=== PATIENT | female | born 1950 | race Caucasian/White ===

== ENCOUNTER → 2016-11-11 | Outpatient (CLI) | payer BC ==
[~2016-11-11] MED LIST: CHOL1CAP PO; CHOL1TAB42 PO; ESTR0.3T PO; SELENIUM PO; SIMV20TA2 PO; VITA400C28 PO
[2016-11-11 13:38] LABS: BASO % 0.5 %; BASO ABS # 0.02 K/uL (0-0.2); COMPLETE YES; EOS % 8.8 %; HEMATOCRIT 44.4 % (37-47); LYMPH % 34.6 %; LYMPH ABS # 1.42 K/uL (1.2-3.4); MEAN CELL VOLUME 93.9 fL (80-100); MEAN CORPUSCULAR HEMOGLOBIN 31.5 pg (25-34); MEAN CORPUSCULAR HGB CONC 33.6 g/dl (32-36); MEAN PLATELET VOLUME 10.6 fL (7.4-10.4); MONO % 7.6 %; NEUT % 48.5 %; PLATELET COUNT 263 K/uL (130-400); RED BLOOD COUNT 4.73 M/uL (4.2-5.4)
[2016-11-11 14:17] LABS: ALT/SGPT 22 U/L (12-78); AST/SGOT 18 U/L (15-37); BLOOD UREA NITROGEN 12 mg/dl (7-18); BUN/CREATININE RATIO 15.5 (10-20); CALCIUM 9.4 mg/dl (8.5-10.1); CARBON DIOXIDE 31 mmol/L (21-32); CHLORIDE 106 mmol/L (98-107); CHOLESTEROL 251 mg/dl (0-200); CREATININE 0.76 mg/dl (0.60-1.20); GLUCOSE 90 mg/dl (70-99); POTASSIUM 4.1 mmol/L (3.5-5.1); SODIUM 142 mmol/L (136-145); TRIGLYCERIDES 162 mg/dl (0-150); VERY LOW DENSITY LIPOPROT CALC 32 mg/dl
[2016-11-11 14:29] LABS: ALB/GLOB RATIO 1.2 (0.9-2); ALKALINE PHOSPHATASE 60 U/L (45-117); CHOLESTEROL/HDL RATIO 3.7; HDL CHOLESTEROL 68 mg/dl; LDL CHOLESTEROL CALCULATED 151 mg/dl
== END | disposition home or self-care (01) ==
LOC: C.LABBC 10:10
PROVIDERS: ATTEND Physician Assistant Medical
DX: Z13.0 Encounter for screening for diseases of the blood and blood-forming organs and certain disorders involving the immune mechanism (principal); E78.5 Hyperlipidemia, unspecified; N20.0 Calculus of kidney

== ENCOUNTER → 2017-03-15 | Outpatient (CLI) | payer BC | END | disposition home or self-care (01) | LOC: C.LAB 10:24 | PROVIDERS: ATTEND Physician Assistant Medical | DX: E78.5 Hyperlipidemia, unspecified (principal) ==

== ENCOUNTER 2023-07-07 06:08 | Inpatient (IN) ==
--- NOTE | 2023-06-19 13:38 | PAT Medication Instructions ---
Medication Instructions Date of Service June 19, 2023 Home Medications Medication Instructions Recorded simvastatin 40 mg tablet 40 mg PO QPM #90 tabs 03/13/23 Medication List: cholecalciferol (vitamin D3) 125 mcg (5,000 unit) capsule 5,000 units PO QPM glucosamine-chondroitin 250 mg-200 mg tablet (Osteo Bi-Flex) 1 tab PO QPM selenium 200 mcg capsule 200 mcg PO QPM vitamin E mixed 400 unit capsule 400 units PO QPM mesalamine 1.2 gram tablet,delayed release (Lialda) 2.4 g PO QAM simvastatin 40 mg tablet 40 mg PO QPM ezetimibe 10 mg tablet (Zetia) 10 mg PO QPM ibuprofen 600 mg tablet 600 mg PO UD PRN pain polyethylene glycol 3350 17 gram oral powder packet (Miralax) 17 g PO Q2D vit C 250 mg-vit E 90 mg-zinc 40 mg-copper 1 cu-jyntgs-vyqtzw capsule (PreserVision AREDS-2) 1 tab PO BID MEDICATION INSTRUCTIONS: ASK your surgeon for instructions ibuprofen 600 mg tablet 600 mg PO UD PRN pain ASK your prescriber and surgeon mesalamine 1.2 gram tablet,delayed release (Lialda) 2.4 g PO QAM STOP taking 2 weeks before surgery vit C 250 mg-vit E 90 mg-zinc 40 mg-copper 1 [id number]-ptzwie-qgmzfq capsule (PreserVision AREDS-2) 1 tab PO BID glucosamine-chondroitin 250 mg-200 mg tablet (Osteo Bi-Flex) 1 tab PO QPM selenium 200 mcg capsule 200 mcg PO QPM vitamin E mixed 400 unit capsule 400 units PO QPM DO NOT take the morning of surgery polyethylene glycol 3350 17 gram oral powder packet (Miralax) 17 g PO Q2D Take evening before surgery simvastatin 40 mg tablet 40 mg PO QPM cholecalciferol (vitamin D3) 125 mcg (5,000 unit) capsule 5,000 units PO QPM ezetimibe 10 mg tablet (Zetia) 10 mg PO QPM Other Notes Remember: NOTHING TO EAT OR DRINK AFTER MIDNIGHT If you have any questions please call us at [phone] or [phone] or [phone] or [phone]
--- NOTE | 2023-06-22 10:27 | Anesthesiology Consultation ---
Date of Service June 22, 2023 Assessment & Plan (1) Encounter for pre-operative examination: - PCP pre-operative evaluation 06/20/23 MN: "...Patient is here at the request of her surgeon. Using the revised cardiac index, she is at low risk for adverse outcomes with non-cardiac surgery. Recent labs reviewed. She does have PAT scheduled on 06/22/23 - will hold off on EKG and CXR today as she was told they will do the testing there. She is acceptable risk for surgery..." Chart Review Chart Review: Acceptable Risk for Surgery and Patient seen in Pre Admission Testing Teaching & Discussion Pre-Anesthesia Teaching/Discussion Notes: Instructed NPO after midnight before surgery, except medications with 15 cc of water. Medication instructions provided according to the PAT guidelines. History Surgery Operation Date: 07/07/23 13:00 Proposed Procedures p L4-L5 Decompression and Fusion, Spinal Cord Monitoring - Sheldon Riley DO Height/Weight Height: 5 ft 3 in Weight: 78.5 kg Allergies Allergy/AdvReac Type Severity Reaction Status Date / Time atorvastatin Allergy Unknown ITCHING, Verified 06/20/23 09:18 RASH Bactrim Allergy Unknown HIVES Verified 07/16/15 15:07 levofloxacin Allergy Unknown HIVES Verified 06/20/23 09:18 sulfamethoxazole Allergy Unknown HIVES Verified 06/20/23 09:18 trimethoprim Allergy Unknown HIVES Verified 06/20/23 09:18 Medications Home Medications Medication Instructions Recorded Confirmed Last Taken cholecalciferol (vitamin D3) 125 5,000 units PO QPM 04/17/19 06/20/23 Unknown mcg (5,000 unit) capsule glucosamine-chondroitin 250 mg-200 1 tab PO QPM 04/17/19 06/20/23 Unknown mg tablet (Osteo Bi-Flex) selenium 200 mcg capsule 200 mcg PO QPM 04/17/19 06/20/23 Unknown vitamin E mixed 400 unit capsule 400 units PO QPM 04/17/19 06/20/23 Unknown mesalamine 1.2 gram tablet,delayed 2.4 g PO QAM 08/24/20 06/20/23 Unknown release (Lialda) simvastatin 40 mg tablet 40 mg PO QPM #90 tabs 03/13/23 06/20/23 Unknown ezetimibe 10 mg tablet (Zetia) 10 mg PO QPM 06/16/23 06/20/23 Unknown ibuprofen 600 mg tablet 600 mg PO UD PRN pain 06/16/23 06/20/23 Unknown polyethylene glycol 3350 17 gram 17 g PO Q2D 06/16/23 06/20/23 Unknown oral powder packet (Miralax) vit C 250 mg-vit E 90 mg-zinc 40 1 tab PO BID 06/16/23 06/20/23 Unknown mg-copper 1 oj-bevbqg-lauqsr capsule (PreserVision AREDS-2) Past Medical History Medical History (Updated 06/22/23 @ 10:42 by Nan Allen PA-C) Erythema migrans (Lyme disease) dx x2, most recent August 2022. History of colon polyps History of gallstones History of high cholesterol History of kidney stones (~1989) Hx of gastric ulcer (~1989) Proctitis chronic Spondylolisthesis and cyst L4-5. Patient denies h/o stroke, seizures, heart attack, heart failure, DM, HTN, blood clots/DVTs or blood transfusions. Exercise / Class Metabolic Activity II 4-5 Yardwork/Stairs/Walk up hill (denies chest discomfort or shortness of breath with one flight of stairs) Past Family History Family History Father Esophagus cancer Sister Diabetes Cardiac disorder Ovarian cancer Stroke Mother Cardiac disorder Myocardial infarction Diabetes Hypertension Aunt Breast cancer MATERNAL AND PATERNAL Denies family history of Prostate cancer Lung cancer Colorectal cancer Past Surgical History Surgical History (Updated 06/22/23 @ 10:42 by Nan Allen PA-C) H/O colonoscopy February 2020, repeat 5 years History of arthroscopy of knee WITH MEDIAL MENISCUS REPAIR History of arthroscopy of left knee History of arthroscopy of right knee History of endoscopy ? in remote hx. History of hysterectomy with bilateral oophorectomy History of lithotripsy History of trigger finger right thumb Past Anesthesia History No Hx of Anesthesia Complications and No Family Hx of Anesthesia Complications History of PONV No Hx of PONV and No Hx of Motion Sickness Social History Smoking Status: Former smoker Do You Dip or Chew Tobacco: No Smoking End Date: 2008 Hx Alcohol Use: No Hx Substance Use: No substance use type: does not use Review of Systems Patient denies chest pain, shortness of breath, dyspnea on exertion, snoring, witnessed apneas, fever, chills, cough, wheezing, or palpitations. Physical Exam Vital Signs Vitals BP 126/78 P 60 TEMP 97.9 SP02 97% on RA RESP 18 Physical Patient resting comfortably in chair in no acute distress, alert and oriented, responding appropriately throughout visit Full cervical extension range of motion without pain TMD 3.5 finger breadths Mallampati Score 2 Dentition: edentulous, full upper and lower dentures Lungs: normal respiratory effort. Good air movement, clear throughout to auscultation, no adventitious breath sounds Cardiac: regular rate and rhythm, no murmurs noted Carotid arteries: negative bruit bilat Lab Results Anesthesia Preop Results Results Anesthesia Widget: WBC 4.86 K/ul (4.8-10.8) 05/24/23 Hgb 14.6 g/dl (12.0-16.0) 05/24/23 Hct 45.4 % (37.0-47.0) 05/24/23 Plt 252 K/uL (130-400) 05/24/23 Na 139 mmol/L (136-145) 05/24/23 K 4.2 mmol/L (3.5-5.1) 05/24/23 Cl 105 mmol/L (98-107) 05/24/23 CO2 29 mmol/L (21-32) 05/24/23 BUN 13 mg/dl (6-23) 05/24/23 Creat 0.80 mg/dl (0.6-1.2) 05/24/23 Glucose Level 100 mg/dl (70-99(Fasting)) H 05/24/23 PT 10.3 Seconds (9.0-12.0) 06/22/23 PTT 25 Seconds (21-31) 06/22/23 INR 0.9 (0.9-1.1) 06/22/23 Urine Color Yellow 06/22/23 Urine Appearance Clear (Clear) 06/22/23 Urine pH 5.5 (4.5-7.5) 06/22/23 Urine Specific Cab[place] 1.016 (1.000-1.030) 06/22/23 Urine Protein Negative (Negative) 06/22/23 Urine Glucose (UA) Negative (Negative) 06/22/23 Urine Ketones Negative (Negative) 06/22/23 Urine Blood Negative (Negative) 06/22/23 Urine Nitrite Negative (Negative) 06/22/23 Urine Bilirubin Negative (Negative) 06/22/23 Urine Urobilinogen Negative (Negative) 06/22/23 Urine Leukocyte Esterase 1+ (Negative) H 06/22/23 Urine WBC (Auto) 0-5 /hpf (0-5) 06/22/23 Urine RBC (Auto) 0-2 /hpf (0-2) 06/22/23 Urine Hyaline Casts (Auto) 0-2 /lpf (0-2) 06/22/23 Urine Epithelial Cells (Auto) 0-2 /hpf (0-2) 06/22/23 Urine Bacteria (Auto) None Seen (None Seen) 06/22/23 Blood Type A Positive 06/22/23 Antibody Screen NEGATIVE 06/22/23 Testing Electrocardiogram Date: 06/22/23 Sinus bradycardia, rate 59 bpm Chest X-Ray Date: 06/22/23 No acute process.
[2023-07-07] MEDS: GABAPENTIN 300 MG CAP PO SCH (06:37)
[2023-07-07] MEDS: LR 15ML/HR IV SCH (06:37)
[2023-07-07] MEDS: ACETAMINOPHEN 500 MG TAB PO SCH (06:37)
[2023-07-07] MEDS: LR 60ML/HR IV SCH (06:38)
[2023-07-07] MEDS ORDERED: ePHEDrine sulfate 50 MG/ML AMP IV PRN (06:59)
[2023-07-07] MEDS ORDERED: ONDANSETRON INJ 2 MG/ML 2 ML VIAL IV PRN ×2 (06:59→11:59)
[2023-07-07] MEDS ORDERED: HYDROmorphone INJ 1 MG/ML SYRINGE IV PRN (06:59)
[2023-07-07] MEDS ORDERED: ATROPINE SULFATE 0.1 MG/ML 10ML SYR IV PRN (06:59)
[2023-07-07] MEDS ORDERED: fentaNYL citrate PF 100 MCG/2 ML VIAL IV PRN (06:59)
[2023-07-07] MEDS ORDERED: fentaNYL citrate PF 100 MCG/2 ML VIAL ONE (07:21)
[2023-07-07] MEDS ORDERED: MIDAZOLAM HCL 1 MG/ML 2ML VIAL ONE (07:21)
[2023-07-07] MEDS ORDERED: SUGAMMADEX SODIUM 200 MG/2 ML VIAL IV ONE (07:24)
[2023-07-07] MEDS ORDERED: PROPOFOL IV EMULSION 10 MG/ML 20 ML VIAL IV ONE (07:24)
[2023-07-07] MEDS ORDERED: ROCURONIUM BROMIDE 10 MG/ML 5 ML VIAL IV ONE (07:24)
[2023-07-07] MEDS ORDERED: LIDOCAINE 2% 2 ML VIAL/AMP(20MG/ML) INFIL ONE (07:24)
--- NOTE | 2023-07-07 07:46 | History & Physical Bridge Note ---
Date of Service July 07, 2023 History & Physical Bridge Note I have examined the patient, reviewed the History & Physical and in the interval since the performance of the History & Physical I have noted the following changes of clinical significance: no changes noted
--- NOTE | 2023-07-07 07:47 | History & Physical Report ---
Date of Service July 07, 2023 Assessment & Plan (1) Neurogenic claudication due to lumbar spinal stenosis: Plan: L4-L5 decompression and fusion History of Present Illness Chief Complaint: Back and leg pain Primary Care Provider: Orlando Bach DO This is a 73-year-old female presents for chronic persistent back and leg pain after failing course of nonoperative care is here for surgical invention. Allergies Allergy/AdvReac Type Severity Reaction Status Date / Time atorvastatin Allergy Unknown ITCHING, Verified 07/07/23 06:29 RASH Bactrim Allergy Unknown HIVES Verified 07/16/15 15:07 levofloxacin Allergy Unknown HIVES Verified 07/07/23 06:29 sulfamethoxazole Allergy Unknown HIVES Verified 07/07/23 06:29 trimethoprim Allergy Unknown HIVES Verified 07/07/23 06:29 Home Medications Medication Instructions Recorded Confirmed Type cholecalciferol (vitamin D3) 125 5,000 units PO QPM 04/17/19 07/07/23 History mcg (5,000 unit) capsule glucosamine-chondroitin 250 mg-200 1 tab PO QPM 04/17/19 07/07/23 History mg tablet (Osteo Bi-Flex) selenium 200 mcg capsule 200 mcg PO QPM 04/17/19 07/07/23 History vitamin E mixed 400 unit capsule 400 units PO QPM 04/17/19 07/07/23 History mesalamine 1.2 gram tablet,delayed 2.4 g PO QAM 08/24/20 07/07/23 History release (Lialda) simvastatin 40 mg tablet 40 mg PO QPM #90 tabs 03/13/23 07/07/23 Rx ezetimibe 10 mg tablet (Zetia) 10 mg PO QPM 06/16/23 07/07/23 History ibuprofen 600 mg tablet 600 mg PO UD PRN pain 06/16/23 07/07/23 History polyethylene glycol 3350 17 gram 17 g PO Q2D 06/16/23 07/07/23 History oral powder packet (Miralax) vit C 250 mg-vit E 90 mg-zinc 40 1 tab PO BID 06/16/23 07/07/23 History mg-copper 1 uu-jgguoy-hoentn capsule (PreserVision AREDS-2) Past Med/Surg History Problem List (Updated 07/07/23 @ 07:47 by Sheldon Riley DO) Neurogenic claudication due to lumbar spinal stenosis Insect bite Breast cancer screening Hormone replacement therapy (HRT) (Acute) Medical History (Updated 07/07/23 @ 07:47 by Sheldon Riley DO) Spondylolisthesis and cyst L4-5. Hx of gastric ulcer (~1989) History of colon polyps History of high cholesterol History of kidney stones (~1989) History of gallstones Erythema migrans (Lyme disease) dx x2, most recent August 2022. Proctitis chronic Surgical History History of arthroscopy of knee WITH MEDIAL MENISCUS REPAIR History of arthroscopy of left knee History of arthroscopy of right knee History of endoscopy ? in remote hx. History of trigger finger right thumb History of lithotripsy H/O colonoscopy February 2020, repeat 5 years History of hysterectomy with bilateral oophorectomy Family History Father Esophagus cancer Sister Diabetes Cardiac disorder Ovarian cancer Stroke Mother Cardiac disorder Myocardial infarction Diabetes Hypertension Aunt Breast cancer MATERNAL AND PATERNAL Denies family history of Prostate cancer Lung cancer Colorectal cancer Social History Smoking Status: Former smoker Tobacco Type: Cigarettes Age Started Using Tobacco: 20; Age Quit Using Tobacco: 42; Smoking End Date: 2008; Second Hand Exposure: No; Do You Dip or Chew Tobacco: No; Hx Alcohol Use: No Hx Substance Use: No Preferred Language: Uzbek Communication Ability: Effective Visual Impairment: Limited Hearing Ability: Normal Field Secretary Required: No Beliefs That Will Affect Care: None marital status: Current Living Situation: Spouse and Family Current Living Situation Comment: and son current occupational status: retired How many Children do You have: 2 Other Information That Helps Us Care for You: Yes (3 steps to get in house and 12 steps in house.) Feels Safe at Home: Yes Childhood Exposure to Second-Hand Smoke: No Diet: regular caffeine: Yes Dental Care, Regularly: No Physical Activity Frequency: Daily Physical Activity Frequency Comment: 4 miles daily Seatbelt Use: always Sunscreen Use: Yes Assistive Devices: Denture - Upper, Denture - Lower and Glasses Physical Exam Physical Exam: Patient is alert and oriented Heart regular rhythm Lungs clear Results & Data Results & Data Vital Signs (Past 12 Hours) Vital Signs Temp Pulse Resp BP Pulse Ox O2 Del Method 07/07/23 06:55 36.5 C 63 20 119/70 96 Room Air
[2023-07-07] MEDS: ceFAZolin 2000MG 2,000 MG/15 ML SYR IV SCH ×2 (08:10→16:56)
[2023-07-07] MEDS ORDERED: ePHEDrine sulfate 50 MG/5 ML SYR ONE (08:19)
[2023-07-07] MEDS ORDERED: DEXAMETHASONE SOD INJ 4 MG/ML VIAL ONE (08:34)
[2023-07-07] MEDS ORDERED: HYDROmorphone INJ 2 MG/ML SYR/VIAL ONE (08:34)
[2023-07-07] MEDS ORDERED: ONDANSETRON INJ 2 MG/ML 2 ML VIAL ONE (08:37)
[2023-07-07] MEDS: BUPIVACAINE/EPINEPHRINE 0.25% 1:200,000 30 ML VIAL ONE (08:42)
[2023-07-07] MEDS: ceFAZolin 330 MG/ML 1 GM VIAL ONE (09:31)
[2023-07-07] MEDS: FLOSEAL HEMOSTATIC MATRIX 10ML TOP ONE (09:32)
--- NOTE | 2023-07-07 09:38 | Operative Report ---
Post Operative Report Pre & Post Diagnosis Operation Date: 07/07/23 07:45 Pre-Op Diagnosis: Spondylolisthesis, Lumbar Region Lumbar spinal stenosis with neurogenic claudication Post-Op Diagnosis: Same I identified the patient and participated in the time-out.: Yes Procedure Operation Date: 07/07/23 07:45 Actual Procedures #1 lumbar decompression with bilateral medial facetectomies and foraminotomies L3-L4 L4-5. #2 posterior spinal fusion L4-L5 per #3 placed posterior instrumentation L4-5. #4 interbody fusion L4-L5 #5 placement of Spira 13 x 26 mm cage x 2 at L4-L5. #6 placement locally harvested morselized autograft in the posterior gutters. #7 placement of infuse collagen sponge, with Koros bone graft in the posterior lateral gutters and Morpheus bone graft interbody space. Surgeon Sheldon Riley DO Change Number Operator Moshe Gross Estimated Blood Loss 100 Findings Consistent with Post-Op Diagnosis Specimens None Indications This is a 73-year-old female presents problems diagnosis) course of nonoperative care is here for surgical invention. Description of Procedure Patient met with identified informed consent obtained. Patient was then taken to the operative suite underwent patient placed in prone position on the Tab table on top of the Adelfo frame. The bony prominences well-padded eyes inspected to ensure no external pressure placed upon the. This point lumbar spine was prepped and draped in a sterile fashion. Sharp dissection with the assistance of Bovie cautery from down to and exposing the lamina and transverse processes of L 4 and L5 bilaterally. From a caudal cephalad fashion a complete laminectomy of L4 was performed including bilateral medial facetectomies and foraminotomies addressing severe lateral recess and foraminal stenosis. Then performed a partial laminectomy of L3 including bilateral medial facetectomies addressing all lateral recess stenosis. Pedicle screws were then placed in L4- L5 bilaterally with assistance of fluoroscopy and properly sized darius placed. By way of transforaminal approach on the right at discectomy of L for L5 was performed endplates guided to subcortical and bone and a 13 x 26 mm spiral cage filled with Morpheus bone graft tapped in position. Then proceeded the left side of the L4-5 transforaminal space. Completed the discectomy endplates guided to subcortical bleeding bone and a second 13 x 26 mm spiral cage filled with Morpheus bone graft tapped in position. The rods were then compressed locked into final position bilaterally. The transverse processes of L4-L5 burred to subcortical bleeding bone. Infuse collagen sponge master graft local autograft was placed in the posterior gutters. 15 round DONTE drain inserted. The incision was then closed with 1 Vicryl in the fascia 2-0 Vicryl subcutaneously and 4 Monocryl for final skin closure. Steri-Strips sterile dressings placed. Patient waken taken PACU stable condition. Please note spinal cord monitoring was utilized at the procedure no changes noted. Lastly Moshe Gross was present at the entire procedure and all the patient positioning complex portion of the surgery and final skin closure. I attest to the content of the Intraoperative Record and any orders documented therein. Any exceptions are noted below.
--- NOTE | 2023-07-07 10:06 | Fluoroscopy Report ---
FL lumbar spine 2-3V CLINICAL HISTORY: L4-L5 DECOMPRESSION AND FUSION TECHNIQUE: 2 views were obtained with the C-arm in the OR with the above procedure. Total fluoroscopy time was 15.9 seconds. Radiation dose was 14.46 mGy. Comparison: Comparison is made to MRI lumbar spine 05/26/2023 FINDINGS/IMPRESSION: Intraoperative images were obtained of L4-L5 decompression and fusion. Please correlate with intraoperative fluoroscopy and operative report. ACT 112: Negative or not required by law. Electronically signed by: Danielito Hollis M.D. 07/07/2023 10:04 AM
--- NOTE | 2023-07-07 10:51 | Anesthesiology Progress Note ---
Date of Service July 07, 2023 Anesthesia Post Procedure Vital Signs Vital Signs: Temp Pulse Pulse Resp BP Pulse Ox O2 Del Method 07/07/23 10:40 36.2 C L 58 L 16 117/66 95 Oxymask 07/07/23 10:30 57 L 16 119/67 95 Oxymask 07/07/23 10:20 62 13 128/71 94 Oxymask 07/07/23 10:10 62 13 118/64 97 Oxymask 07/07/23 10:02 36 C L 71 18 126/89 98 Oxymask 07/07/23 06:55 36.5 C 63 20 119/70 96 Room Air O2 Flow Rate 07/07/23 10:40 4 07/07/23 10:30 4 07/07/23 10:20 4 07/07/23 10:10 8 07/07/23 10:02 8 07/07/23 06:55 Transfer of Care Handoff Completed per policy Notes Mental Status: alert / awake / arousable and participated in evaluation Patient Amnestic to Procedure: Yes Nausea / Vomiting: adequately controlled Pain: adequately controlled Airway Patency, RR, SpO2: stable & adequate BP & HR: stable & adequate Hydration State: stable & adequate Anesthetic Complications: no major complications apparent and Pt Satisfied with anesthetic care
[2023-07-07] MEDS ORDERED: hydrOXYzine HCl 25 MG TAB PO PRN (11:59)
[2023-07-07] MEDS ORDERED: bisacodyL 10 MG SUPP PR PRN (11:59)
[2023-07-07] MEDS ORDERED: SOD PHOSPHATE/SOD BIPHOSPHATE ENEMA 132 ML BTL PR PRN (11:59)
[2023-07-07] MEDS ORDERED: DO NOT ADMINISTER PNEUMOCOCCAL VACCINE PRN (11:59)
[2023-07-07] MEDS ORDERED: LORazepam 0.5 MG TAB PO PRN (11:59)
[2023-07-07] MEDS ORDERED: ONDANSETRON 4 MG OD TAB PO PRN (11:59)
[2023-07-07] MEDS ORDERED: ACETAMINOPHEN 1,000 MG/100 ML VIAL IV PRN (11:59)
[2023-07-07] MEDS ORDERED: MAGNESIUM HYDROXIDE SUSP 30 ML UDC PO PRN (11:59)
[2023-07-07] MEDS ORDERED: NALOXONE HCL 0.4 MG/1 ML VIAL/CARP IV PRN (11:59)
[2023-07-07] MEDS ORDERED: FAMOTIDINE 20 MG TAB PO PRN (11:59)
[2023-07-07] MEDS ORDERED: LORazepam 0.5 MG in SYRINGE 0.25 ML IV PRN (11:59)
[2023-07-07] MEDS ORDERED: DO NOT ADMINISTER FLU VACCINE PRN (11:59)
[2023-07-07] MEDS ORDERED: ALUMINUM/MAGNESIUM SUSP 30 ML UDC PO PRN (11:59)
[2023-07-07] MEDS ORDERED: diphenhydrAMINE Capsule 25 MG CAP PO PRN (11:59)
[2023-07-07] MEDS ORDERED: METOCLOPRAMIDE HCL INJ 5 MG/ML 2 ML VIAL IV PRN (11:59)
[2023-07-07] MEDS ORDERED: PROMETHAZINE HCL 12.5 MG in SODIUM CHLORIDE 0.9% 50 ML IV PRN (11:59)
[2023-07-07] MEDS ORDERED: HYDROmorphone INJ 0.5 MG/0.5 ML SYR IV PRN (11:59)
[2023-07-07] MEDS: HYDROmorphone INJ 1 MG/ML SYRINGE IV PRN (12:42)
--- NOTE | 2023-07-07 13:06 | Hospitalist Consultation ---
Date of Consultation July 07, 2023 Assessment & Plan (1) Neurogenic claudication due to lumbar spinal stenosis: s/p lumbar spine decompression, PT/OT pain control laxatives DVT prophylaxis as per surgery (2) Hyperlipidemia: continue statins History of Present Illness Reason for Consultation: medical managment Attending Physician: Sheldon Riley DO History of Present Illness 73 yo female with h/o hyperlipidemia, lumbar spine stenosis, underwent lumbar spine decompression surgery today, tolerated surgery well, reports some minimal pain at surgical site, denies chest pain , SOB, no nausea, vomiting. Allergies Allergy/AdvReac Type Severity Reaction Status Date / Time atorvastatin Allergy Unknown ITCHING, Verified 07/07/23 06:29 RASH Bactrim Allergy Unknown HIVES Verified 07/16/15 15:07 levofloxacin Allergy Unknown HIVES Verified 07/07/23 06:29 sulfamethoxazole Allergy Unknown HIVES Verified 07/07/23 06:29 trimethoprim Allergy Unknown HIVES Verified 07/07/23 06:29 Home Medications Medication Instructions Recorded Confirmed Type cholecalciferol (vitamin D3) 125 5,000 units PO QPM 04/17/19 07/07/23 History mcg (5,000 unit) capsule glucosamine-chondroitin 250 mg-200 1 tab PO QPM 04/17/19 07/07/23 History mg tablet (Osteo Bi-Flex) selenium 200 mcg capsule 200 mcg PO QPM 04/17/19 07/07/23 History vitamin E mixed 400 unit capsule 400 units PO QPM 04/17/19 07/07/23 History mesalamine 1.2 gram tablet,delayed 2.4 g PO QAM 08/24/20 07/07/23 History release (Lialda) simvastatin 40 mg tablet 40 mg PO QPM #90 tabs 03/13/23 07/07/23 Rx ezetimibe 10 mg tablet (Zetia) 10 mg PO QPM 06/16/23 07/07/23 History ibuprofen 600 mg tablet 600 mg PO UD PRN pain 06/16/23 07/07/23 History polyethylene glycol 3350 17 gram 17 g PO Q2D 06/16/23 07/07/23 History oral powder packet (Miralax) vit C 250 mg-vit E 90 mg-zinc 40 1 tab PO BID 06/16/23 07/07/23 History mg-copper 1 kn-meatzc-awskrg capsule (PreserVision AREDS-2) oxycodone 5 mg tablet 5 mg PO Q6H PRN pain #30 tabs 07/07/23 Rx tramadol 50 mg tablet 50 mg PO Q6H PRN pain, moderate 07/07/23 Rx #30 tabs Patient History Medical History (Updated 07/07/23 @ 13:17 by Zoila Galvez MD) Spondylolisthesis and cyst L4-5. Hx of gastric ulcer (~1989) History of colon polyps History of high cholesterol History of kidney stones (~1989) History of gallstones Erythema migrans (Lyme disease) dx x2, most recent August 2022. Proctitis chronic Surgical History History of arthroscopy of knee WITH MEDIAL MENISCUS REPAIR History of arthroscopy of left knee History of arthroscopy of right knee History of endoscopy ? in remote hx. History of trigger finger right thumb History of lithotripsy H/O colonoscopy February 2020, repeat 5 years History of hysterectomy with bilateral oophorectomy Family History Father Esophagus cancer Sister Diabetes Cardiac disorder Ovarian cancer Stroke Mother Cardiac disorder Myocardial infarction Diabetes Hypertension Aunt Breast cancer MATERNAL AND PATERNAL Denies family history of Prostate cancer Lung cancer Colorectal cancer Social History Smoking Status: Former smoker Tobacco Type: Cigarettes Age Started Using Tobacco: 20; Age Quit Using Tobacco: 42; Smoking End Date: 2008; Second Hand Exposure: No; Do You Dip or Chew Tobacco: No; Hx Alcohol Use: No Hx Substance Use: No Preferred Language: Haitian Communication Ability: Effective Visual Impairment: Limited Hearing Ability: Normal Casket Liner Required: No Beliefs That Will Affect Care: None marital status: Current Living Situation: Spouse and Family Current Living Situation Comment: and son current occupational status: retired How many Children do You have: 2 Other Information That Helps Us Care for You: Yes (3 steps to get in house and 12 steps in house.) Feels Safe at Home: Yes Childhood Exposure to Second-Hand Smoke: No Diet: regular caffeine: Yes Dental Care, Regularly: No Physical Activity Frequency: Daily Physical Activity Frequency Comment: 4 miles daily Seatbelt Use: always Sunscreen Use: Yes Assistive Devices: Denture - Upper, Denture - Lower and Glasses Review of Systems Review of Systems: All systems reviewed & are unremarkable except as noted in HPI & below Physical Exam Physical Exam: head atraumatic neck supple, chest CTA b/l heart S1S2 regular, no murmurs abdomen soft, nt, nd , bs present extremities no edema, no cyanosis neuro alert, awake, not oriented, pulses present neuro AAO oriented times 3 skin big incision lumbar spine Results & Data Results & Data Vital Signs (Past 12 Hours) Vital Signs Temp Pulse Pulse Resp BP Pulse Ox O2 Del Method 07/07/23 12:50 36.2 C L 63 16 105/65 97 Nasal Cannula 07/07/23 12:14 36.3 C L 60 14 114/75 97 Nasal Cannula 07/07/23 11:40 36.3 C L 12 113/74 Nasal Cannula 07/07/23 11:20 36.4 C L 60 12 113/64 95 Nasal Cannula 07/07/23 11:10 63 12 111/52 L 96 Nasal Cannula 07/07/23 11:00 57 L 12 106/61 95 Nasal Cannula 07/07/23 10:50 60 15 113/57 L 95 Nasal Cannula 07/07/23 10:40 36.2 C L 58 L 16 117/66 95 Nasal Cannula 07/07/23 10:30 57 L 16 119/67 95 Oxymask 07/07/23 10:20 62 13 128/71 94 Oxymask 07/07/23 10:10 62 13 118/64 97 Oxymask 07/07/23 10:02 36 C L 71 18 126/89 98 Oxymask 07/07/23 06:55 36.5 C 63 20 119/70 96 Room Air O2 Flow Rate 07/07/23 12:50 2 07/07/23 12:14 2 07/07/23 11:40 2 07/07/23 11:20 2 07/07/23 11:10 2 07/07/23 11:00 2 07/07/23 10:50 2 07/07/23 10:40 2 07/07/23 10:30 4 07/07/23 10:20 4 07/07/23 10:10 8 07/07/23 10:02 8 07/07/23 06:55 PG Care Time/CCT Total # of Minutes Spent Total Time Spent with Patient: Total time spent is greater than 50% in coordination of care (as documented) at patient's floor/unit and/or counseling patient: Coding Level of Care Code 59782 IN/OBS CONSULT LVL 4,60M Diagnoses Neurogenic claudication due to lumbar spinal stenosis M48.062 Hyperlipidemia E78.5
[2023-07-07] MEDS: LACTATED RINGER'S 1,000 ML IV SCH (14:23)
[2023-07-07] MEDS: oxyCODONE HCL IR 5 MG TAB (IMMEDIATE RELEASE) PO PRN (16:56)
[2023-07-07] MEDS: TOCOPHERYL, DL-ALPHA 100 UNITS 67 MG CAP PO SCH (20:12)
[2023-07-07] MEDS: CHOLECALCIFEROL 125 MCG (5,000 UNITS) TAB PO SCH (20:12)
[2023-07-07] MEDS: CEROVITE ADV FORMULA TAB PO SCH (20:12)
[2023-07-07] MEDS: SIMVASTATIN 40 MG TAB PO SCH (20:12)
[2023-07-07] MEDS: EZETIMIBE 10 MG TAB PO SCH (20:12)
[2023-07-07] MEDS: DOCUSATE SODIUM/SENNA 50/8.6MG TAB PO SCH (20:12)
[2023-07-08] MEDS: POLYETHYLENE (MIRALAX) 17 GM PACK PO SCH (05:31)
[2023-07-08] MEDS: traMADol HCL 50 MG TABLET PO PRN (05:31)
[2023-07-08 07:30] LABS: Basophils # (auto) 0.01 K/uL (0.00-0.20); Basophils % (auto) 0.1 %; Eosinophils # (auto) 0.01 K/uL (0.00-0.50); Eosinophils % (auto) 0.1 %; Hematocrit (blood only) 33.5 % (37.0-47.0); Hemoglobin 11.1 g/dl (12.0-16.0); Immature Granulocytes # (auto) 0.03 K/uL (0.01-0.20); Immature Granulocytes % (auto) 0.4 %; Lymphocytes # (auto) 1.93 K/uL (1.20-3.40); Lymphocytes % (auto) 23.5 %; Mean Corpuscular Hemoglobin 30.9 pg (25.0-34.0); Mean Corpuscular Hgb Conc 33.1 g/dL (32.0-36.0); Mean Corpuscular Volume 93.3 fL (80.0-100.0); Mean Platelet Volume 10.7 fL (9.4-12.4); Monocytes # (auto) 0.76 K/uL (0.11-0.59); Monocytes % (auto) 9.2 %; Neutrophils # (auto) 5.48 K/uL (1.40-6.50); Neutrophils % (auto) 66.7 %; Platelet Count 219 K/uL (130-400); RDW Coefficient of Variation 12.7 % (11.5-14.5); RDW Standard Deviation 43.8 fL (36.4-46.3); Red Blood Count 3.59 M/uL (4.20-5.40); White Blood Count 8.22 K/ul (4.8-10.8)
[2023-07-08] MEDS: dexAMETHasone 6 MG in SYRINGE 0 ML IV SCH (07:48)
[2023-07-08] MEDS: ACETAMINOPHEN 500 MG TAB PO PRN (07:54)
[2023-07-08 08:31] LABS: Calcium 8.5 mg/dl (8.6-10.3); Potassium 4.1 mmol/L (3.5-5.1)
[2023-07-08 08:37] LABS: BUN Creatinine Ratio 21.1 (10-20); Creatinine Clr Calc Pharmacy 72.1 ml/min; Est GFR (African American) 99.3 ml/min; Est GFR (Non-African American) 85.7 ml/min
--- NOTE | 2023-07-08 10:17 | Orthopedic Progress Note ---
Date of Service July 08, 2023 Assessment & Plan (1) Neurogenic claudication due to lumbar spinal stenosis: Plan: At this time we will continue physical therapy monitor DONTE output anticipate discharge home in the next day or so. Admission and Anticipated Discharge Date Admission Date: July 07, 2023 Subjective Back pain controlled leg pain markedly improved Physical Exam Physical Exam: Patient is sitting in the chair by the bed. She is comfortable. Is good strength testing. Results & Data Vital Signs (Past 12 Hours) Vital Signs Temp Pulse Resp BP Pulse Ox O2 Del Method 07/08/23 07:57 36.4 C L 67 16 103/66 94 Room Air 07/08/23 03:21 36.9 C 62 17 103/67 93 Room Air 07/07/23 22:58 36.6 C 76 17 100/69 93 Room Air
[2023-07-08] MEDS: MESALAMINE 1.2 GM PO SCH (11:28)
[2023-07-08] MEDS ORDERED: MESALAMINE 800 MG TABCR PO SCH (11:30)
--- NOTE | 2023-07-08 12:12 | Hospitalist Progress Note ---
Date of Service July 08, 2023 Assessment & Plan (1) Neurogenic claudication due to lumbar spinal stenosis: Plan: s/p lumbar spine decompression from L3-L5 with fusion, instrumentation, grafting. Postoperative day #1. Orthopedic spine management (2) Hyperlipidemia: Plan: Stable. 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 Stable Plan Eventual discharge to home per primary service within the next day or 2 Admission and Anticipated Discharge Date Admission Date: July 07, 2023 Subjective Alert and oriented. Postoperative day 1 after decompression laminectomy L3-L5 with fusion instrumentation and grafting. Mesalamine has been reordered and started today. Orthopedic spine entry noted. Hopefully home within the next day or 2. She is medically stable Review of Systems 2 Review of Systems: Constitutional-no fever or chills ENT-no blurred vision, no double vision, no epistaxis, no sore throat Respiratory-no cough, no wheezing, no shortness of breath Cardiac-no palpitations, no chest pain, no syncope GI-no nausea, vomiting, diarrhea, melena, hematochezia -no urinary retention, no urinary incontinence, no dysuria, no hematuria Musculoskeletal-postoperative lumbar discomfort as expected. No muscle tenderness Skin-no bruising, no rashes, no pruritus Neuro-no isolated weakness, no paresthesia Psych-no depression, no anxiety Physical Exam 2 Physical Exam: General-alert and oriented x3, no fever, no chills HEENT-head atraumatic and normocephalic, pupils equal and reactive to light, extraocular muscles intact Neck-no lymphadenopathy or thyromegaly, trachea midline Chest-clear to auscultation. No rales, wheezing or rhonchi Cardiac-regular rate and rhythm, normal S1 and S2 Abdomen-normal bowel sounds, no hepatosplenomegaly Extremities-no cyanosis, clubbing, or edema Neuro-cranial nerves II through XII intact, motor and sensory function within normal limits, strength symmetrical, no focal deficits Psych-normal affect, normal mood Results & Data Results & Data Vital Signs (Past 12 Hours) Vital Signs Temp Pulse Resp BP Pulse Ox O2 Del Method 07/08/23 07:57 36.4 C L 67 16 103/66 94 Room Air 07/08/23 03:21 36.9 C 62 17 103/67 93 Room Air Laboratory Results 07/08/23 06:42 07/08/23 06:42 PG Care Time/CCT Total # of Minutes Spent Total Time Spent with Patient: Total time spent is greater than 50% in coordination of care (as documented) at patient's floor/unit and/or counseling patient: Coding Level of Care Code 51283 SUB INP/OBS CARE 2/35MIN Diagnoses Neurogenic claudication due to lumbar spinal stenosis M48.062 Hyperlipidemia E78.5 Proctitis K62.89
[2023-07-09 07:04] LABS: Basophils # (auto) 0.01 K/uL (0.00-0.20); Basophils % (auto) 0.1 %; Eosinophils # (auto) 0.01 K/uL (0.00-0.50); Eosinophils % (auto) 0.1 %; Hematocrit (blood only) 37.5 % (37.0-47.0); Hemoglobin 12.7 g/dl (12.0-16.0); Immature Granulocytes # (auto) 0.03 K/uL (0.01-0.20); Immature Granulocytes % (auto) 0.3 %; Lymphocytes # (auto) 2.15 K/uL (1.20-3.40); Mean Corpuscular Hemoglobin 31.6 pg (25.0-34.0); Mean Corpuscular Hgb Conc 33.9 g/dL (32.0-36.0); Mean Corpuscular Volume 93.3 fL (80.0-100.0); Mean Platelet Volume 10.6 fL (9.4-12.4); Monocytes # (auto) 0.82 K/uL (0.11-0.59); Monocytes % (auto) 8.4 %; Neutrophils # (auto) 6.76 K/uL (1.40-6.50); Neutrophils % (auto) 69.1 %; Platelet Count 229 K/uL (130-400); RDW Coefficient of Variation 12.7 % (11.5-14.5); RDW Standard Deviation 43.4 fL (36.4-46.3); Red Blood Count 4.02 M/uL (4.20-5.40); White Blood Count 9.78 K/ul (4.8-10.8)
[2023-07-09 07:20] LABS: BUN Creatinine Ratio 23.6 (10-20); Calcium 9.1 mg/dl (8.6-10.3); Creatinine Clr Calc Pharmacy 71.1 ml/min; Est GFR (African American) 97.7 ml/min; Est GFR (Non-African American) 84.3 ml/min; Potassium 4.2 mmol/L (3.5-5.1)
--- NOTE | 2023-07-09 10:47 | Orthopedic Progress Note ---
Date of Service July 09, 2023 Assessment & Plan (1) Neurogenic claudication due to lumbar spinal stenosis: Plan: This time continue physical therapy and anticipate discharge home tomorrow. Admission and Anticipated Discharge Date Admission Date: July 07, 2023 Subjective Patient is ambulating the halls. She is comfortable. Has no leg pain. Physical Exam Physical Exam: Patient is demonstrating good strength testing. Sensory intact. Results & Data Vital Signs (Past 12 Hours) Vital Signs Temp Pulse Resp BP Pulse Ox O2 Del Method 07/09/23 07:27 36.5 C 53 L 16 131/76 95 Room Air
--- NOTE | 2023-07-09 13:41 | Hospitalist Progress Note ---
Date of Service July 09, 2023 Assessment & Plan (1) Neurogenic claudication due to lumbar spinal stenosis: Plan: s/p lumbar spine decompression from L3-L5 with fusion, instrumentation, grafting. Postoperative day #2. Orthopedic spine management (2) Hyperlipidemia: Plan: Stable. 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 Stable Plan Hopeful discharge to home tomorrow by primary service, July 09 Admission and Anticipated Discharge Date Admission Date: July 07, 2023 Subjective Alert and oriented. Hemodynamically stable. Postoperative day 2 after lumbar surgery. She is hemodynamically stable. Hemoglobin 12.7. Probably home tomorrow, July 09 Review of Systems 2 Review of Systems: Constitutional-no fever or chills ENT-no blurred vision, no double vision, no epistaxis, no sore throat Respiratory-no cough, no wheezing, no shortness of breath Cardiac-no palpitations, no chest pain, no syncope GI-no nausea, vomiting, diarrhea, melena, hematochezia -no urinary retention, no urinary incontinence, no dysuria, no hematuria Musculoskeletal-postoperative lumbar discomfort as expected. No muscle tenderness Skin-no bruising, no rashes, no pruritus Neuro-no isolated weakness, no paresthesia Psych-no depression, no anxiety Physical Exam 2 Physical Exam: General-alert and oriented x3, no fever, no chills HEENT-head atraumatic and normocephalic, pupils equal and reactive to light, extraocular muscles intact Neck-no lymphadenopathy or thyromegaly, trachea midline Chest-clear to auscultation. No rales, wheezing or rhonchi Cardiac-regular rate and rhythm, normal S1 and S2 Abdomen-normal bowel sounds, no hepatosplenomegaly Extremities-no cyanosis, clubbing, or edema Neuro-cranial nerves II through XII intact, motor and sensory function within normal limits, strength symmetrical, no focal deficits Psych-normal affect, normal mood Results & Data Results & Data Vital Signs (Past 12 Hours) Vital Signs Temp Pulse Resp BP Pulse Ox O2 Del Method 07/09/23 07:27 36.5 C 53 L 16 131/76 95 Room Air Laboratory Results 07/09/23 06:32 07/09/23 06:32 PG Care Time/CCT Total # of Minutes Spent Total Time Spent with Patient: Total time spent is greater than 50% in coordination of care (as documented) at patient's floor/unit and/or counseling patient: Coding Level of Care Code 37582 SUB INP/OBS CARE Diagnoses Neurogenic claudication due to lumbar spinal stenosis M48.062 Hyperlipidemia E78.5 Proctitis K62.89
[2023-07-10 07:05] LABS: Basophils # (auto) 0.01 K/uL (0.00-0.20); Basophils % (auto) 0.1 %; Eosinophils # (auto) 0.01 K/uL (0.00-0.50); Eosinophils % (auto) 0.1 %; Hemoglobin 11.6 g/dl (12.0-16.0); Immature Granulocytes # (auto) 0.03 K/uL (0.01-0.20); Immature Granulocytes % (auto) 0.3 %; Lymphocytes # (auto) 2.09 K/uL (1.20-3.40); Lymphocytes % (auto) 23.9 %; Mean Corpuscular Hgb Conc 33.1 g/dL (32.0-36.0); Mean Corpuscular Volume 93.6 fL (80.0-100.0); Monocytes # (auto) 0.83 K/uL (0.11-0.59); Monocytes % (auto) 9.5 %; Neutrophils # (auto) 5.78 K/uL (1.40-6.50); Neutrophils % (auto) 66.1 %; Platelet Count 221 K/uL (130-400); RDW Coefficient of Variation 12.6 % (11.5-14.5); RDW Standard Deviation 43.6 fL (36.4-46.3); Red Blood Count 3.74 M/uL (4.20-5.40); White Blood Count 8.75 K/ul (4.8-10.8)
[2023-07-10 07:33] LABS: BUN Creatinine Ratio 28.6 (10-20); Calcium 8.9 mg/dl (8.6-10.3); Creatinine Clr Calc Pharmacy 73.1 ml/min; Est GFR (Non-African American) 87.2 ml/min; Potassium 4.2 mmol/L (3.5-5.1)
--- NOTE | 2023-07-10 10:47 | Discharge Summary ---
Date of Service July 10, 2023 Admission HPI Per Admitting Provider This is a 73-year-old female presents for chronic persistent back and leg pain after failing course of nonoperative care is here for surgical invention. Principal Diagnosis Lumbar spinal stenosis with spondylolisthesis and neurogenic claudication Discharge Data Allergies Allergy/AdvReac Type Severity Reaction Status Date / Time atorvastatin Allergy Unknown ITCHING, Verified 07/07/23 06:29 RASH Bactrim Allergy Unknown HIVES Verified 07/16/15 15:07 levofloxacin Allergy Unknown HIVES Verified 07/07/23 06:29 sulfamethoxazole Allergy Unknown HIVES Verified 07/07/23 06:29 trimethoprim Allergy Unknown HIVES Verified 07/07/23 06:29 Consultations 07/07/23 11:59 Consult Hospitalist Routine Procedures Performed Operation Date: 07/07/23 07:45 Actual Procedures p L4-L5 Decompression and Fusion, Spinal Cord Monitoring(Not Applicable) - Sheldon Riley DO Ordered Studies 07/07/23 07:45 [place] lumbar spine 2-3V Routine Hospital Course (1) Neurogenic claudication due to lumbar spinal stenosis: Patient underwent lumbar decompression fusion tolerated this well was taken to orthopedic for postoperative. Postop patient progressed appropriate. Leg pain improved. Extra strength testing. DONTE drain decreasing. Subsequent discharge home. Discharge orders instructions from chart for further review. Total Time Total Time Spent Total Time Spent (In Minutes): 20 minutes Discharge Plan Discharge Items Patient Disposition: Home - Self-Care Reason For Visit: Spondylolisthesis, Lumbar Region, Synovial Cyst of Discharge Diagnosis: Lumbar spinal stenosis with spondylolisthesis Activity: As commented below Non-emergency contact: Primary Care Provider Call non-emergency contact if: you have any medication questions Follow-up/Referrals: Orlando Bach DO [Primary Care Provider] - Diet: Regular Addtl Attending Provider Instructions: ACTIVITY RECOMMENDATIONS: SELF CARE INSTRUCTIONS AFTER THORACIC/LUMBAR FUSIONS 1. You may walk to your tolerance. It is good exercise for your legs and back. Expect some back and intermittent leg aches and pains. 2. You may perform "counter-top" level activities (make a sandwich, mohit with a project, etc.). 3. No bending or lifting of more than 10 pounds or back twisting of any nature (roll like a log when turning in bed). 4. You may ride in a car for 20-30 minutes at a time. No driving until after your first visit with your doctor. 5. Frequent changes of position and restricting sitting to 30 minutes at a time will help limit the amount of back spasms and stiffness you may experience. 6. You may discontinue the use of ambulatory aids (cane, crutches, etc.) once your strength and confidence allow. 7. You may stitcher standard machine the shower and let water strike your incision when you arrive home at least once daily. Do not take a tub bath, sit in a hot tub or go into a swimming pool until after your first recheck in the office. SPECIAL CARE INSTRUCTIONS: VERY IMPORTANT TO READ AND REVIEW A. Your surgical incision has been closed with a cosmetic suture under the skin that will dissolve in about 6 weeks. In 14 days, you can use a pair of clean scissors and cut the suture that is left outside of the skin at the ends of your incision. 1. The small skin tapes can be removed 7 days after surgery if they have not fallen off by that point. 2. You may keep the wound open to air as much as possible to promote healing after post-op day number 5 unless told otherwise by your doctor. 3. If you think the wound looks like it is becoming infected (redness or worsening drainage) and/or you are experiencing fever, chill or worsening back pain and muscle spasms, contact the office so that we may evaluate you as soon as possible. B. Complications are uncommon, but please contact us if you have any signs or symptoms of: 1. wound infection (fever higher than 102.5 degrees F, redness, separation of wound, drainage, or increasing pain from the incision) 2. blood clots in legs (pain, swelling, redness and warmth in legs) 3. urinary tract infection (fever higher than 102.5 degrees F, burning upon urination or increased frequency of urination) 4. nerve problems (inability to walk on your toes or heels, numbness, loss of bowel or bladder control) 5. any other symptoms that concern you C. Please call the office at if you have any concerns or questions about your operation or recovery. D. No smoking! Smoking drastically decreases the chance of a solid fusion. E. Do not take any anti-inflammatory medications (Indocin, Advil, Motrin, Aspirin, Naprosyn, etc.) as these may inhibit the chance of a solid fusion. Tylenol is okay to take for pain. MANAGING PAIN AFTER SPINAL SURGERY 1. Narcotic medication is intended for short-term use and will be provided for surgical pain. Surgical pain usually lasts for a period of 4-6 weeks. Narcotic medication includes Percocet, Vicodin, Darvocet, Tylenol #3 or Lortab. 2. Longer-term pain is more appropriately treated with non-narcotic medication such as Tylenol ES. 3. Muscle spasm is not appropriately treated with narcotics. Muscle relaxers such as Soma, Flexeril or Skelaxin can be used along with Tylenol ES. 4. Remember that we all live with some "aches and pains". This is not unusual or uncommon after an injury or as we get older. a. Back pain is expected and may include muscle spasms for 4 to 6 weeks after surgery. The pain should gradually improve. If the pain worsens for no apparent reason, please contact the office. b. Intermittent leg pain may also be experienced and should not be concerned about unless it worsens for no apparent reason. If so, please contact the office. 5. We will provide appropriate medication within the normal guidelines of their prescribed use. We will also be very cautious and aware of potential abuse and extended duration of patients' medication needs. a. Pain medications are for your comfort and to assist with sleep and rest so that the tissue can heal. They are not provided in order to return to normal activity and should not be used through the day. To do so or worsening pain at night can result from ongoing tissue damage and development of tolerance to the prescribed medicine. 6. Please allow 2-3 days to process refills. Prescriptions will not be mailed but must be picked up at the office. FOLLOW UP VISIT: Keep your scheduled follow-up appointment. Any questions, please call the office at . Pending Studies at Discharge: No Stand-Alone Forms: My [employer] Smoking Cessation Medications and MT Order Prescriptions: New tramadol 50 mg tablet 50 mg PO Q6H PRN (Reason: pain, moderate) Qty: 30 0RF oxycodone 5 mg tablet 5 mg PO Q6H PRN (Reason: pain) Qty: 30 0RF Continued simvastatin 40 mg tablet 40 mg PO QPM Qty: 90 3RF mesalamine [Lialda] 1.2 gram tablet,delayed release (DR/EC) 2.4 g PO QAM glucosamine-chondroitin [Osteo Bi-Flex] 250-200 mg tablet 1 tab PO QPM selenium 200 mcg capsule 200 mcg PO QPM cholecalciferol (vitamin D3) 125 mcg (5,000 unit) capsule 5,000 units PO QPM vitamin E mixed 400 unit capsule 400 units PO QPM PreserVision AREDS-2 250-90-40-1 mg Capsule 1 tab PO BID ezetimibe [Zetia] 10 mg tablet 10 mg PO QPM polyethylene glycol 3350 [Miralax] 17 gram Powder In Packet 17 g PO Q2D Patient Comments: morning mix with coffee Discontinued ibuprofen 600 mg tablet 600 mg PO UD PRN (Reason: pain) Discharge Orders: Discharge Order (Routine); Ordered 07/10/23 Ordered By: Sheldon Riley Admission Data Admit Date/Time: 07/07/23 09:40 Attending Provider: Sheldon Riley Admit Provider: Sheldon Riley Primary Care Provider: Orlando Bach Other Providers: May Hu
== END 2023-07-10 13:01 | disposition home or self-care (01) | DRG 455 ==
LOC: ASU 06:08 → 3E 09:40